=== PATIENT | male | born 1990 | race Caucasian/White ===

== ENCOUNTER 2020-12-14 12:20 | Emergency (ER) | payer MEDICAID, OTHER ==
[~2020-12-14] VITALS: Ht 190.5 cm; Wt 118.2 kg
[2020-12-14 12:22] VITALS: BP 140/86
== END 2020-12-14 15:06 | disposition left against medical advice (07) ==
LOC: EMS 12:31
DX: R21 Rash and other nonspecific skin eruption (principal)
CPT/HCPCS: 99281; Z7502